=== PATIENT | female | born 1945 | race Caucasian/White ===

== ENCOUNTER 2016-05-17 22:24 | Emergency (ER) | payer OTHER ==
[~2016-05-17] VITALS: Ht 157.5 cm; Wt 45.4 kg
--- NOTE | 2016-05-17 23:18 | Emergency Room Report ---
History of Present Illness General Chief Complaint: Upper Respiratory Illness Source: Patient, EMS Present Illness HPI Patient presents with complaints of shortness of breath She reports having a history of COPD Patient had taken breathing she was at home which was not helping And presents with paramedics denies any chest pain Denies any back or flank pain or shortness of breath is worsened with exertion Denies any vomiting or diarrhea denies any recent travel Denies any pleurisy Allergies: Coded Allergies: No Known Allergies (Unverified , 05/17/16) Patient History Past Medical History: see triage record Pertinent Family History: none Reviewed Nursing Documentation: PMH: Agreed, PSxH: Agreed Nursing Documentation-PMH Past Medical History: No History, Except For Review of Systems All Other Systems: negative except mentioned in HPI Physical Exam Vital Signs Date Time Temp Pulse Resp B/P Pulse Ox O2 Delivery O2 Flow Rate FiO2 05/17/16 22:19 98.1 105 16 172/90 97 Room Air Sp02 EP Interpretation: reviewed, normal General Appearance: well appearing, no apparent distress Head: normocephalic, atraumatic Eyes: bilateral eye EOMI, bilateral eye PERRL ENT: hearing grossly normal, normal pharynx, TMs + canals normal, uvula midline Neck: full range of motion, supple, no meningismus, no bony tend Respiratory: no retraction, no accessory muscle use, crackles, wheezing Cardiovascular #1: normal peripheral pulses, regular rate, rhythm, no edema, no gallop, no JVD, no murmur Gastrointestinal: normal bowel sounds, non tender, soft, no mass, no organomegaly, non-distended, no guarding, no hernia, no pulsatile mass, no rebound Genitourinary: no CVA tenderness Musculoskeletal: normal inspection Neurologic: oriented x3, responsive, is architect III-XII nml as tested, motor strength/ tone normal, sensory intact Psychiatric: mood/affect normal Skin: normal color, no rash, warm/dry, palpation normal Lymphatic: normal inspection, no adenopathy Medical Decision Making Diagnostic Impression: Primary Impression: COPD exacerbation ER Course Patient is a fairly complex patient with multiple differential to consideration including but not limited to cardiac cardiopulmonary and vascular emergencies Patient was given breathing treatments and steroid has done better given her age and general appearance and reevaluation however patient requires admission for further care Secondary to insurance purposes patient was set for transfer she is stable for transfer at this time Patient's x-ray shows some abnormality in the right side likely mainly chronic in nature but will require further workup Labs Test 05/17/16 23:15 White Blood Count 7.3 K/UL (4.8-10.8) Red Blood Count 4.47 M/UL (4.20-5.40) Hemoglobin 13.2 G/DL (12.0-16.0) Hematocrit 41.1 % (37.0-47.0) Mean Corpuscular Volume 92 FL (80-99) Mean Corpuscular Hemoglobin 29.5 PG (27.0-31.0) Mean Corpuscular Hemoglobin Concent 32.1 G/DL (32.0-36.0) Red Cell Distribution Width 13.7 % (11.6-14.8) Platelet Count 325 K/UL (150-450) Mean Platelet Volume 5.4 FL (6.5-10.1) Neutrophils (%) (Auto) 66.7 % (45.0-75.0) Lymphocytes (%) (Auto) 18.9 % (20.0-45.0) Monocytes (%) (Auto) 12.2 % (1.0-10.0) Eosinophils (%) (Auto) 1.5 % (0.0-3.0) Basophils (%) (Auto) 0.7 % (0.0-2.0) Sodium Level 141 mEQ/L (135-145) Potassium Level 4.9 mEQ/L (3.4-4.9) Chloride Level 101 mEQ/L (98-107) Carbon Dioxide Level 27 mEQ/L (20-30) Anion Gap 13 (5-15) Blood Urea Nitrogen 14 mg/dL (7-23) Creatinine 0.5 mg/dL (0.5-0.9) Estimat Glomerular Filtration Rate > 60 mL/min (>60) Glucose Level 103 mg/dL (74-106) Calcium Level 9.4 mg/dL (8.6-10.2) Total Bilirubin 0.2 mg/dL (0.0-1.2) Aspartate Amino Transf (AST/SGOT) 19 U/L (5-40) Alanine Aminotransferase (ALT/SGPT) 11 U/L (3-33) Alkaline Phosphatase 68 U/L (35-104) Total Creatine Kinase 34 U/L (26-140) Creatine Kinase MB 2.2 ng/mL (< 3.8) Creatine Kinase MB Relative Index 6.4 Troponin I < 0.30 ng/mL (<=0.30) Pro-B-Type Natriuretic Peptide 474 pg/mL (0-125) Total Protein 7.0 g/dL (6.6-8.7) Albumin 3.6 g/dL (3.5-5.2) Globulin 3.4 g/dL Albumin/Globulin Ratio 1.0 (1.0-2.7) EKG Diagnostic Results Rate: normal Rhythm: NSR ST Segments: other Rhythm Strip Diag. Results EP Interpretation: yes Rate: 77 Rhythm: NSR, no PVC's, no ectopy Chest X-Ray Diagnostic Results EP Interpretation: Yes Findings: no consolidation, no effusion, no pneumothorax, other - There is abnormal markings in the right side, question breast pathology versus lung pathology Number of Views: 1 Last Vital Signs Date Time Temp Pulse Resp B/P Pulse Ox O2 Delivery O2 Flow Rate FiO2 05/17/16 22:19 98.1 105 16 172/90 97 Room Air Status: improved Disposition: XFER [facility] Condition: Improved OTF FREDERICK D.O. May 17, 2016 23:18
[2016-05-17] MEDS ORDERED: Albuterol ud Inhalation HHN ONE (23:30)
[2016-05-17] MEDS ORDERED: Ipratropium 0.02% Inh Soln 2.5ml UD HHN ONE (23:30)
[2016-05-18] LABS: BASOPHILS % (AUTO) 0.7 % (0.0-2.0); EOSINOPHILS % (AUTO) 1.5 % (0.0-3.0); LYMPHOCYTES % (AUTO) 18.9 % (20.0-45.0); MEAN CORPUSCULAR HEMOGLOBIN 29.5 PG (27.0-31.0); MEAN CORPUSCULAR HGB CONC 32.1 G/DL (32.0-36.0); MEAN CORPUSCULAR VOLUME 92 FL (80-99); MEAN PLATELET VOLUME 5.4 FL (6.5-10.1); MONOCYTES % (AUTO) 12.2 % (1.0-10.0); NEUTROPHILS % (AUTO) 66.7 % (45.0-75.0); PLATELET COUNT 325 K/UL (150-450); RED BLOOD COUNT 4.47 M/UL (4.20-5.40); RED CELL DISTRIBUTION WIDTH 13.7 % (11.6-14.8); WHITE BLOOD COUNT 7.3 K/UL (4.8-10.8)
[2016-05-18 00:15] LABS: TROPONIN I < 0.30 ng/mL (<=0.30)
[2016-05-18 00:18] LABS: ALANINE AMINOTRANSFERASE 11 U/L (3-33); ANION GAP 13 (5-15); ASPARTATE AMINO TRANSFERASE 19 U/L (5-40); CALCIUM 9.4 mg/dL (8.6-10.2); CARBON DIOXIDE 27 mEQ/L (20-30); CHLORIDE 101 mEQ/L (98-107); CREATININE 0.5 mg/dL (0.5-0.9); GLOMERULAR FILTRATION RATE > 60 mL/min (>60); HEMOLYSIS 3; POTASSIUM 4.9 mEQ/L (3.4-4.9); SODIUM 141 mEQ/L (135-145)
[2016-05-18 00:29] LABS: CKMB 2.2 ng/mL (< 3.8)
[2016-05-18 00:30] VITALS: BP 149/69
[2016-05-18] MEDS ORDERED: Solu-MEDROL 125mg Inj IVP ONE (00:30)
[2016-05-18 01:52] VITALS: BP 146/60
[2016-05-18 03:00] VITALS: BP 146/60
--- NOTE | 2016-05-18 17:37 | Cardiology Report ---
APPROVED REPORT EKG Measurement Heart [id number] Sinus rhythm with short MS Otherwise normal ECG
--- NOTE | 2016-05-25 14:57 | Diagnostic Imaging Report ---
Indications: ] Technique: Portable AP chest Findings: Comparison: None Lungs are mildly, symmetrically hyperinflated. Increased interstitial markings are present throughout both lungs with interspersed lucencies, more discrete pleural-based linear densities, adjacent biapical pleural thickening. Heart size, pulmonary vasculature within normal limits. No basal pleural abnormalities. Aortic arch calcified. IMPRESSION: Bilateral interstitial disease with findings suggesting chronicity/fibrosis, etiology indeterminate. Superimposed acute interstitial infiltrate not excludable Bilateral apical pleural thickening, nonspecific, likely also chronic inflammatory in nature Aortosclerosis
== END 2016-05-18 03:00 | disposition short-term general hospital (02) ==
LOC: EDBD 22:24 → EMR 23:30
DX: J44.1 Chronic obstructive pulmonary disease with (acute) exacerbation (principal)
CPT/HCPCS: 36415; 71010; 80053; 82550; 82553; 83880; 84484; 85025; 87040; 93005; 94640; 94664; 96361; 96374; 99284; J2930; J7040